=== PATIENT | female | born 1965 ===

== ENCOUNTER → 2024-12-26 | Outpatient (CLI) | payer BC ==
[~2024-12-26] MED LIST: AMITRIPTYLINE H25 MG PO; Diclofenac Sod100 MG PO; IMITREX100 MG PO; LORAZEPAM0.5 MG PO; QULIPTA60 MG PO; Zaleplon5 MG PO
[2024-12-27 17:04] LABS: Influenza B, PCR NEGATIVE (NEGATIVE); Resp Syncytial Virus, PCR NEGATIVE (NEGATIVE); SARS-Cov-2 (COVID-19) PCR, MMC NEGATIVE (NEGATIVE)
[2024-12-27 18:16] LABS: Influenza A, PCR POSITIVE (NEGATIVE)
== END | disposition home or self-care (01) ==
LOC: LAB SHORT 15:34
PROVIDERS: Physician Assistant
DX: R05.9 Cough, unspecified (principal); R50.9 Fever, unspecified
CPT/HCPCS: 0241U

== ENCOUNTER → 2025-08-21 | Outpatient (CLI) | payer BC ==
[2025-08-22 18:45] LABS: U Amphetamine Screen Not Detected; U Barbituate Screen Not Detected; U Benzodiazapine Screen DETECTED; U Buprenorphine Screen Not Detected; U Cannabinoids Screen Not Detected; U Cocaine Screen Not Detected; U Methadone Screen Not Detected; U Methamphetamine Screen Not Detected; U Opiates Screen Not Detected; U Oxycodone Screen Not Detected; U Phencyclidine Screen Not Detected
== END ==
LOC: LAB SHORT 17:15 → LAB 17:15
PROVIDERS: Nurse Practitioner Family
DX: Z02.89 Encounter for other administrative examinations (principal)